=== PATIENT | female | born 1990 | race American Indian/Alaskan Native ===

== ENCOUNTER 2021-03-21 13:04 | Emergency (ER) | payer SELFPAY ==
[2021-03-21] MEDS ORDERED: ONDANSETRON 4 MG ODT TAB PO ONE (16:30)
--- NOTE | 2021-03-21 16:33 | Emergency Department Report ---
ED Abdominal Pain HPI - General Stated Complaint: BLACK STOOL/VOMITING Time Seen by Provider: 03/21/21 16:30 - History of Present Illness Initial Comments: Patient presents with abdominal pain associate with nausea and vomiting with diarrhea. On March 11, she had an electively at 12 weeks gestation. Subsequent to that, she developed vomiting with diarrhea and abdominal pain. Pain is sharp and stabbing in the left lower abdomen. There is a cramping component in addition. She has not had hematemesis or coffee-ground emesis. She states that she is still having some vaginal bleeding and spotting so she does not know if that is what starting the commode color reddish to blackish. She states that she does not think this is blood in her stool. She has no urinary symptoms. There has been no fevers or chills. She has never had sym ptoms like this before. She has had no sick contacts. - Related Data Previous Rx's Medication Instructions Recorded Last Taken Type Lidocaine Viscous 2% 15 ml MM TID PRN #120 ml 03/21/21 Unknown Rx Metoclopramide [Reglan] 10 mg PO ACHS PRN #30 tablet 03/21/21 Unknown Rx Allergies Allergy/AdvReac Type Severity Reaction Status Date / Time No Known Allergies Allergy Verified 03/21/21 17:46 ED Review of Systems ROS: Stated complaint: BLACK STOOL/VOMITING Other details as noted in HPI Comment: All other systems reviewed and negative Constitutional: denies: fever Eyes: denies: vision change ENT: denies: epistaxis Respiratory: denies: cough Cardiovascular: denies: chest pain Endocrine: denies: unexplained weight loss Gastrointestinal: as per HPI Genitourinary: as per HPI Musculoskeletal: denies: back pain Skin: denies: rash Neurological: denies: headache Hematological/Lymphatic: denies: easy bruising ED Past Medical Hx - Past Medical History Previous Medical History?: No - Surgical History Additional Surgical History: Recent elective - Family History Family history: no significant - Medications Home Medications: Home Medications Medication Instructions Recorded Confirmed Last Taken Type Lidocaine Viscous 2% 15 ml MM TID PRN #120 ml 03/21/21 Unknown Rx Metoclopramide [Reglan] 10 mg PO ACHS PRN #30 tablet 03/21/21 Unknown Rx ED Physical Exam - General Limitations: No Limitations, Other (Pulse ox noted and normal) General appearance: alert, in no apparent distress - Head Head exam: Present: atraumatic, normocephalic - Eye Eye exam: Present: normal appearance, EOMI - ENT ENT exam: Present: normal orophraynx, normal external ear exam - Neck Neck exam: Present: normal inspection. Absent: meningismus - Respiratory Respiratory exam: Present: normal lung sounds bilaterally. Absent: respiratory distress - Cardiovascular Cardiovascular Exam: Present: regular rate, normal rhythm - GI/Abdominal GI/Abdominal exam: Present: soft, tenderness (Left pelvic). Absent: guarding, rebound - Extremities Exam Extremities exam: Absent: calf tenderness - Back Exam Back exam: Absent: CVA tenderness (R), CVA tenderness (L) - Neurological Exam Neurological exam: Present: alert, oriented X3, CN II-XII intact, normal gait - Psychiatric Psychiatric exam: Present: normal affect, normal mood - Skin Skin exam: Present: warm, dry ED Course Vital Signs 03/21/21 03/21/21 16:29 16:40 Temperature 98.9 F 98.9 F Pulse Rate 96 H 117 H Respiratory 17 17 Rate Blood Pressure 137/110 Blood Pressure 137/101 [Left] O2 Sat by Pulse 99 100 Oximetry - Reevaluation(s) Reevaluation #1: 03/21/21 16:32 Labs and x-rays were ordered. Old records reviewed. Reevaluation #2: 03/21/21 17:32 Labs been reviewed. Potassium has been ordered. Reevaluation #3: 03/21/21 23:47 Ultrasound was noted and the patient was discharged ED Medical Decision Making - Lab Data Result diagrams: 03/21/21 16:46 03/21/21 16:46 - Medical Decision Making Patient presented with reports of abdominal pain and reports of a mechanical several days ago. Based on ultrasound, she has an intrauterine that is viable. I cannot reconcile her history of an versus the IUP currently seen. When asked specifically, she states that she was not given medication for a medication induced . She actually describes a p rocess where she was in [facility] and had some sort of instrumentation completed through the cervix. Regardless, at this time she does have an intrauterine with cardiac activity. She was informed of this. She was referred to [facility]. We have told her we will treat this as an active at this point. Critical Care Time: No Critical care attestation.: If time is entered above; I have spent that time in minutes in the direct care of this critically ill patient, excluding procedure time. ED Disposition Clinical Impression: Nausea vomiting and diarrhea, Hypokalemia, Intrauterine Disposition: HOME / SELF CARE / HOMELESS Is pt being admited?: No Condition: Stable Instructions: and Travel, Diarrhea, Adult, Hypokalemia, Food Choices to Help Relieve Diarrhea, Adult, Care, Nausea and Vomiting, Adult, Adxg-on-Jxcs, Potassium Content of Foods Additional Instructions: Have a bland diet. Drink plenty water. Return for problems. Follow-up with your regular doctor and your account services coordinator for recheck. Follow-up with the clin ic they reportedly did your . Prescriptions: Lidocaine Viscous 2% 15 ml MM TID PRN #120 ml PRN Reason: Pain, Moderate (4-6) Metoclopramide [Reglan] 10 mg PO ACHS PRN #30 tablet PRN Reason: Nausea Referrals: PRIMARY CAREMD [Primary Care Provider] - 3-5 Days TIM HOBSON MD [Staff Physician] - 3-5 Days
[2021-03-21 16:41] VITALS: BP 137/101
[2021-03-21 17:06] LABS: Hematocrit 42.5 % (30.3-42.9); Hemoglobin 14.1 gm/dl (10.1-14.3); Mean Corpuscular HGB Conc 33 % (30-34); Mean Corpuscular Volume 87 fl (79-97); Platelet Count 322 K/mm3 (140-440); Red Blood Count 4.88 M/mm3 (3.65-5.03); Red Cell Distribution Width 12.9 % (13.2-15.2)
[2021-03-21 17:17] LABS: Blood Urea Nitrogen 12 mg/dL (7-17); Calcium 9.3 mg/dL (8.4-10.2); Hemolysis Index 15
[2021-03-21 17:19] LABS: BUN/Creatinine Ratio 20
[2021-03-21] MEDS ORDERED: POTASSIUM CHLORIDE ER 20 MEQ TAB PO ONE (17:32)
--- NOTE | 2021-03-21 18:15 | XRay Report ---
ABDOMEN SERIES WITH ONE VIEW CHEST INDICATION / CLINICAL INFORMATION: evaluate for perforation. COMPARISON: None available. FINDINGS: TUBES / LINES: None. BOWEL GAS PATTERN: No significant abnormality. FREE AIR / EXTRALUMINAL GAS: None seen. ADDITIONAL FINDINGS: No significant additional findings. LUNGS: Visualized lungs show no significant abnormality. IMPRESSION: 1. No significant abnormality. Signer Name: Jona Murphy MD Signed: 03/21/2021 6:11 PM Workstation Name: [id number]
[2021-03-21 19:23] LABS: Platelet Estimate Consistent w Auto; RBC Morphology Normal; Total Cells Counted 100
--- NOTE | 2021-03-21 22:49 | Ultrasound Report ---
ULTRASOUND OBSTETRIC INDICATION / CLINICAL INFORMATION: Elective , rule out retained products of conception. Clinical age is 13 weeks 6 days TECHNIQUE: Transabdominal. Transvaginal COMPARISON: None available. FINDINGS: GESTATIONAL SAC: Well-defined oval shape and intrauterine in location. YOLK SAC: No significant abnormality. EMBRYO/FETUS: No significant abnormality. - [place]-Rump Length = 3.8 cm = 10 weeks, 5 day(s). - Heart Rate, beats per minute (if present) = 177 ADNEXA: No significant abnormality. Both ovaries appear unremarkable. FREE FLUID: None. ADDITIONAL FINDINGS: None. IMPRESSION: 1. Single, living intrauterine with estimated sonographic age of 10 weeks, 0 day(s). Signer Name: Gi Fitzpatrick MD Signed: 03/21/2021 10:44 PM Workstation Name: [id number]
--- NOTE | 2021-03-21 22:49 | Ultrasound Report ---
ULTRASOUND OBSTETRIC INDICATION / CLINICAL INFORMATION: Elective , rule out retained products of conception. Clinical age is 13 weeks 6 days TECHNIQUE: Transabdominal. Transvaginal COMPARISON: None available. FINDINGS: GESTATIONAL SAC: Well-defined oval shape and intrauterine in location. YOLK SAC: No significant abnormality. EMBRYO/FETUS: No significant abnormality. - [place]-Rump Length = 3.8 cm = 10 weeks, 5 day(s). - Heart Rate, beats per minute (if present) = 177 ADNEXA: No significant abnormality. Both ovaries appear unremarkable. FREE FLUID: None. ADDITIONAL FINDINGS: None. IMPRESSION: 1. Single, living intrauterine with estimated sonographic age of 10 weeks, 0 day(s). Signer Name: Gi Fitzpatrick MD Signed: 03/21/2021 10:44 PM Workstation Name: [id number]
== END 2021-03-22 00:54 | disposition home or self-care (01) ==
LOC: ED 13:04
DX: O00.01 Abdominal pregnancy with intrauterine pregnancy (principal); O26.891 Other specified pregnancy related conditions, first trimester; E87.6 Hypokalemia; O21.9 Vomiting of pregnancy, unspecified; R19.7 Diarrhea, unspecified; Z79.899 Other long term (current) drug therapy; Z3A.12 12 weeks gestation of pregnancy
CPT/HCPCS: 36415; 74022; 76801; 76817; 80048; 84702; 85007; 85025; 99284; J3490; Q0162